=== PATIENT | male | born 1980 | race Caucasian/White ===

== ENCOUNTER 2021-10-14 14:16 | Emergency (ER) | payer OTHER ==
[~2021-10-14 14:16] MED LIST: FLONASE 0.05% N16 GM; PREDNISONE 10 M10 MG PO; ZYRTEC10 MG PO
[2021-10-14] MEDS ORDERED: AUGMENTIN 875-1 EACH PO (14:36)
[2021-10-14] MEDS ORDERED: IBUPROFEN600 MG PO (14:37)
== END 2021-10-14 14:58 | disposition home or self-care (01) ==
LOC: ER1 14:16
DX: K04.7 Periapical abscess without sinus (principal); K02.9 Dental caries, unspecified; K05.10 Chronic gingivitis, plaque induced; F17.210 Nicotine dependence, cigarettes, uncomplicated
CPT/HCPCS: 99282